=== PATIENT | male | born 1960 | race Caucasian/White ===

== ENCOUNTER 2021-01-31 15:47 | Inpatient (IN) | payer OTHER ==
[~2021-01-31] VITALS: Ht 172.7 cm; Wt 95.3 kg
[2021-01-31] MEDS ORDERED: IV NS 0.9% 1,000 ML BAG IV ONE ×2 (16:30→17:30)
[2021-01-31] MEDS ORDERED: ACETAMINOPHEN ES 500 MG TABLET ONE (16:30)
[2021-01-31] MEDS ORDERED: ACETAMINOPHEN ES 500 MG TABLET PO ONE (16:30)
[2021-01-31 16:32] LABS: BASOPHILS % (AUTO) 0.1 % (0.0-2.0); HEMATOCRIT 37 % (39-51); HEMOGLOBIN 12.3 g/dL (13.5-17.5); LYMPHOCYTES # (AUTO) 1.6 /CMM (0.8-4.8); LYMPHOCYTES % (AUTO) 10.6 % (20.0-44.0); MEAN CORPUSCULAR HGB CONC 33 g/dl (31.0-36.0); MEAN CORPUSCULAR VOLUME 83 fL (80-96); MONOCYTES # (AUTO) 0.9 /CMM (0.1-1.30); NEUTROPHILS # (AUTO) 12.2 /CMM (1.8-8.9); NEUTROPHILS % (AUTO) 83.3 % (43.0-81.0); PLATELET COUNT (AUTO) 402 /CMM (150-450); RED BLOOD CELL COUNT(AUTO) 4.47 MIL/uL (4.5-6.0); WHITE BLOOD COUNT (AUTO) 14.7 K/uL (4.3-11.0)
[2021-01-31 16:54] LABS: ALANINE AMINOTRANSFERASE 24 U/L (12-78); ALBUMIN 2.9 g/dL (3.4-5.0); ALKALINE PHOSPHATASE 111 U/L (46-116); ASPARTATE AMINOTRANSFERASE 18 U/L (15-37); BILIRUBIN,DIRECT 0.2 mg/dL (0.0-0.2); BILIRUBIN,TOTAL 1.3 mg/dL (0.2-1.0); CALCIUM, SERUM 9.5 mg/dL (8.5-10.1); CARBON DIOXIDE 25 mmol/L (21-32); CHLORIDE 94 mmol/L (98-107); CREATININE 1.2 mg/dL (0.6-1.3); NT-PRO BNP 1024 PG/ML (0-125); POTASSIUM 4.8 mmol/L (3.5-5.1); SODIUM SERUM 131 mmol/L (136-145); TOTAL PROTEIN, SERUM 8.5 g/dL (6.4-8.2); UREA NITROGEN, BLOOD 13 mg/dL (7-18)
[2021-01-31 16:57] LABS: GLUCOSE 369 mg/dL (74-106)
--- NOTE | 2021-01-31 17:02 | NUR ---
URINE COLLECTED AND SENT TO THE LAB
[2021-01-31 17:07] LABS: BILIRUBIN,URINE Negative (NEGATIVE); COLOR,URINE YELLOW (YELLOW); LEUKOCYTE ESTERASE ,URINE Negative (NEGATIVE); NITRITE, URINE Negative (NEGATIVE); PROTEIN,URINE >=300 mg/dl (NEGATIVE); UGLUCOSE >=1000 mg/dL (NEGATIVE)
--- NOTE | 2021-01-31 17:15 | NUR ---
PATIENT`S OXYGEN SATURATION IN ROOM AIR IS AT 83%. PLACED ON NON-REBREATHER MASK AT 15L/MIN AND SATURATION IMPROVED TO 95%. MARENI ATTAPMTED NASAL CANNULA AND SIMPLE MASK TO IMPROVE OXYGEN SATURATION PRIOR PLACING ON NON-REBREATHER MASK, HOWEVER, THE PATIENT OXYGEN SATURATION WAS NOT GETTING WNL WITH NASAL CANNULA OR SIMPLE MASK. AUGUSTO MERA
[2021-01-31] MEDS ORDERED: IOHEXOL-350 100 ML VIAL IV ONE (17:21)
[2021-01-31] MEDS ORDERED: CT SWABBABLE VALVE TRANS SET 1 EA INFUS.SET MC ONE (17:22)
[2021-01-31] MEDS ORDERED: IV NS 0.9% 250 ML IV ONE (17:22)
[2021-01-31 17:25] LABS: RBC,URINE 21-50 /HPF (0-2)
[2021-01-31 17:26] LABS: BACTERIA,URINE Few /HPF (None Seen); SQUAMOUS EPITHELIAL CELL,UR Rare /HPF (None Seen)
[2021-01-31] MEDS ORDERED: PIPERACILLIN /TAZOBACTAM 3.375 G in IV D5W 50 ML IV ONE (17:30)
[2021-01-31] MEDS ORDERED: VANCOMYCIN 1 GM in IV D5W 250 ML IV ONE (17:30)
--- NOTE | 2021-01-31 17:41 | NUR ---
received a call from [facility] (fuentes) report given and given us verbal authorization for patient to stay fro admission.
--- NOTE | 2021-01-31 18:17 | NUR ---
THE PATIENT IS ALERT AND ORIENTED X4. DENIES PAIN. PATIENT IS ON OXYGEN AT 2L/MIN VIA NASAL CANNULA AND SATURATION IS AT 95%. DENIES SOB. RESPIRATION REGULAR AND UNLABORED. WILL CONTINUE TO MONITOR THE PATIENT.
--- NOTE | 2021-01-31 18:17 | NUR ---
COVID SWAB DONE AND SENT TO THE LAB
--- NOTE | 2021-01-31 18:46 | NUR ---
covid negative per lab
[2021-01-31] MEDS ORDERED: INSULIN REGULAR, HUMAN 100 UNIT/ML 10 ML VIAL SQ ONE (19:30)
[2021-01-31] MEDS ORDERED: INSULIN REGULAR, HUMAN 100 UNIT/ML 10 ML VIAL ONE (19:40)
--- NOTE | 2021-01-31 19:56 | NUR ---
AUGUSTO MERA SPEAKING WITH VIVIANE DAWSON REGARDING ADMISSION
--- NOTE | 2021-01-31 21:02 | NUR ---
PATIENT PROVIDED WITH BLANKET FOR COMFORT.
--- NOTE | 2021-01-31 21:24 | NUR ---
SLOANE DAWSON ASSISTANT BASEBALL COACH AT BEDSIDE SPEAKING WITH PATIENT.
[2021-01-31] MEDS ORDERED: ACETAMINOPHEN 325 MG TABLET PO PRN (21:30)
[2021-01-31] MEDS ORDERED: HYDROCODONE/APAP 5/325MG TABLET PO PRN (21:30)
[2021-01-31] MEDS ORDERED: METOPROLOL TARTRATE INJ 5 MG/5 ML AMPUL IVP PRN (21:30)
[2021-01-31] MEDS ORDERED: ONDANSETRON HCL/PF 4 MG/2 ML VIAL IVP PRN (21:30)
[2021-01-31] MEDS ORDERED: NITROGLYCERIN 0.4 MG/TAB BOTTLE SL PRN (21:30)
[2021-01-31] MEDS ORDERED: MAG HYDROX/AL HYDROX/SIMETH 30 ML UDC PO PRN (21:30)
[2021-01-31] MEDS ORDERED: MAGNESIUM HYDROXIDE 30 ML UDC PO PRN (21:30)
[2021-01-31] MEDS ORDERED: MORPHINE SULFATE INJ 2 MG/ML DISP.SYRIN IV PRN (21:30)
--- NOTE | 2021-01-31 22:11 | NUR ---
SLOANE DAWSON [employer]SEMBLER [employer] NOTIFIED OF PATIENT'S BLOOD PRESSURE 193/113, HEART RATE IS 134. VERBAL ORDER TO GIVE METOPROLOL 5MG IV. WILL MEDICATE ORDERED.
--- NOTE | 2021-01-31 22:11 | NUR ---
Note latha in EDM - 01/31/21 at 2221 by KEEGAN SLOANE DAWSON NP NOTIFIED OF PATIENT'S BLOOD PRESSURE 193/113, VERBAL ORDER TO GIVE METOPROLOL 5MG IV. WILL MEDICATE ORDERED.
--- NOTE | 2021-01-31 22:28 | NUR ---
PATIENT MEDICATED ORDERED
[2021-01-31 22:30] VITALS: BP 189/108
--- NOTE | 2021-01-31 22:46 | NUR ---
PATIENT'S IS FOUND UNRESPONSIVE. PATIENT HAS THREADY PULSE. PATIENT IS CYANOTIC. PATIENT IS APPLIED WITH AMBUBAG TO DELIVER OXYGEN TO PATIENT. RT AND DOCTOR CALLED.
--- NOTE | 2021-01-31 22:46 | NUR ---
Note latha in ED - 02/01/21 at 0416 by KEEGAN PATIENT FOUND UNRESPONSIVE. NO PULSE, CYANOTIC. PATIENT IS APPLIED WITH AMBUBAG FOR DELIVERY OF OXYGEN.
--- NOTE | 2021-01-31 23:07 | NUR ---
PATIENT'S HEART RHYTHM IS VENTRICULAR FIBRILLATION, DR. LUDWIG ORDER FOR 200JOULES OF DEFIBRILLATION.
--- NOTE | 2021-01-31 23:26 | NUR ---
CALLED [employer] AND SPOKE WITH PATT. PER PATT, NOT A HOME CARE GIVER'S CASE
--- NOTE | 2021-01-31 23:43 | NUR ---
SPOKE WITH KAREN FROM [facility]. CASE #[id number]
[2021-02-01] MEDS ORDERED: PIPERACILLIN /TAZOBACTAM 3.375 G in IV D5W 50 ML IV SCH ×2
--- NOTE | 2021-02-01 00:34 | NUR ---
PATIENT'S SON AND TOOK PATIENT'S BELONGINGS.
[2021-02-01] MEDS ORDERED: SODIUM BICARBONATE SYR 50 MEQ/50 ML DISP.SYRIN ONE (02:00)
[2021-02-01] MEDS ORDERED: EPINEPHRINE (1:10,000) SYRINGE 1 MG/10 ML DISP.SYRIN ONE (02:00)
[2021-02-01] MEDS ORDERED: ENOXAPARIN SODIUM 100 MG/ML DISP.SYRIN SQ SCH (02:00)
[2021-02-01] MEDS ORDERED: CALCIUM CHLORIDE 1,000 MG/10 ML DISP.SYRIN ONE (02:00)
--- NOTE | 2021-02-01 02:17 | NUR ---
PT TRANSPORTED TO [facility] [place] WITH SECURITY
[2021-02-01] MEDS ORDERED: PANTOPRAZOLE 40 MG TABLET.DR PO SCH (07:30)
[2021-02-01] MEDS ORDERED: METOPROLOL TARTRATE 25 MG TABLET PO SCH (09:00)
== END 2021-01-31 23:11 | DRG 720 ==
LOC: ER 15:54 → TRANSITION 21:03 → UNDODISIN 02-01 01:00
PROVIDERS: ADMIT Nurse Practitioner Family; ATTEND Nurse Practitioner Family
DX: A41.9 Sepsis, unspecified organism (principal); J96.01 Acute respiratory failure with hypoxia; I21.A1 Myocardial infarction type 2; I49.01 Ventricular fibrillation; J18.9 Pneumonia, unspecified organism; E11.40 Type 2 diabetes mellitus with diabetic neuropathy, unspecified; I67.2 Cerebral atherosclerosis; E44.1 Mild protein-calorie malnutrition; M41.9 Scoliosis, unspecified; E11.69 Type 2 diabetes mellitus with other specified complication; M86.171 Other acute osteomyelitis, right ankle and foot; E87.1 Hypo-osmolality and hyponatremia; I25.10 Atherosclerotic heart disease of native coronary artery without angina pectoris; Z20.822 Contact with and (suspected) exposure to COVID-19; I10 Essential (primary) hypertension; E78.00 Pure hypercholesterolemia, unspecified; E78.5 Hyperlipidemia, unspecified; Z95.1 Presence of aortocoronary bypass graft; Z95.5 Presence of coronary angioplasty implant and graft; Z86.16 Personal history of COVID-19; Z86.73 Personal history of transient ischemic attack (TIA), and cerebral infarction without residual deficits; Z90.79 Acquired absence of other genital organ(s); Z79.82 Long term (current) use of aspirin; Z98.890 Other specified postprocedural states; E11.65 Type 2 diabetes mellitus with hyperglycemia; L03.031 Cellulitis of right toe; J34.1 Cyst and mucocele of nose and nasal sinus; M47.814 Spondylosis without myelopathy or radiculopathy, thoracic region; N40.0 Benign prostatic hyperplasia without lower urinary tract symptoms
CPT/HCPCS: 36415; 70450-TC; 71045-TC; 73660-TC; 80048-TC; 80076-TC; 81001; 82962-TC; 83605-TC; 83880; 84484-TC; 85025-TC; 85652-TC; 85730-TC; 86140-TC; 87040-TC; 87081-TC; 87086-TC; C9803; G0378; J0171; J1650; J1815; J2270; J2405; J2543; J3370; J3490; J7030; J7050; J7060; Q9967